=== PATIENT | female | born 1985 | race Caucasian/White ===

== ENCOUNTER 2022-09-01 08:43 | Emergency (ER) | payer MEDICAID ==
[~2022-09-01] VITALS: Ht 170.2 cm; Wt 63.6 kg
[2022-09-01] MEDS ORDERED: ondansetron/PF 4mg/2ml inj IV ONE ×2 (09:10→10:00)
[2022-09-01] MEDS ORDERED: ketorolac trometh. 30mg/ml inj. IV ONE (09:10)
[2022-09-01 09:24] LABS: CLARITY,URINE SLIGHTLY CLOUDY (Clear); COLOR,URINE YELLOW (Yellow); GLUCOSE, URINE NEGATIVE (Neg); KETONES,URINE NEGATIVE (Neg); LEUKOCYTE ESTERASE ,URINE NEGATIVE (Neg); OCCULT BLOOD,URINE NEGATIVE (Neg); PROTEIN,URINE NEGATIVE (Neg); UROBILINOGEN,URINE 0.2 E.U/dL (0.2-1.0)
[2022-09-01 09:25] LABS: URINE HCG NEGATIVE (NEG)
[2022-09-01 09:26] LABS: UA COLLECTION TYPE CLN CATCH MIDSTREAM
[2022-09-01 09:29] LABS: MUCUS STRANDS MODERATE /LPF (Neg); NITRITES, URINE NEGATIVE (Neg); SQUAMOUS EPITHELIAL CELL,UR MANY /LPF (FEW)
[2022-09-01 09:30] LABS: BACTERIA,URINE FEW /HPF (Neg); RBC,URINE 0-2 /HPF (0-2); WBC,URINE 0-4 /HPF (0-4)
[2022-09-01 09:34] LABS: BASOPHILS % (AUTO) 0.7 % (0-1); EOSINOPHILS % (AUTO) 0.1 % (0-6); HEMATOCRIT 39.9 % (35.0-45.0); HEMOGLOBIN 13.3 g/dl (12.0-16.0); LYMPHOCYTES # (AUTO) 0.8 X10'3 (1.1-4.8); LYMPHOCYTES % (AUTO) 15.8 % (21-51); MEAN CORPUSCULAR HEMOGLOBIN 29.9 PG (27.0-31.0); MEAN CORPUSCULAR HGB CONC 33.5 g/dL (33.0-36.5); MEAN CORPUSCULAR VOLUME 89.2 FL (78-98); MONOCYTES # (AUTO) 0.6 X10'3 (0-0.9); NEUTROPHILS # (AUTO) 3.7 X10'3 (1.8-7.7); NEUTROPHILS % (AUTO) 71.4 % (42-75); PLATELET COUNT 206 X10'3 (140-440); RED BLOOD COUNT 4.47 X10'6 (4.20-5.60); RED CELL DISTRIBUTION WIDTH 13.7 % (11.5-14.5); WHITE BLOOD COUNT 5.2 X10'3 (4.5-11.0)
[2022-09-01 09:38] LABS: ALANINE AMINOTRANSFERASE 52 U/L (12-78); ALBUMIN 3.9 G/DL (3.4-5.0); ALKALINE PHOSPHATASE 84 IU/L (46-116); ANION GAP 7 (8-16); ASPARTATE AMINO TRANSFERASE 55 U/L (10-37); BILIRUBIN,TOTAL 0.4 MG/DL (0.1-1.0); BLOOD UREA NITROGEN 11 MG/DL (7-18); BUN/CREATININE RATIO 15.3 (6.6-38.0); CALCIUM 9.1 MG/DL (8.5-10.1); CHLORIDE 100 MMOL/L (99-107); CREATININE 0.72 MG/DL (0.40-0.90); GLUCOSE 107 MG/DL (70-104); SODIUM 136 MMOL/L (135-145); TOTAL CARBON DIOXIDE 29.2 MMOL/L (24-32); TOTAL PROTEIN 7.9 G/DL (6.4-8.2); eGFR > 90 ML/MIN
[2022-09-01] MEDS: normal saline 1000ML IV soln IVB ONE ×2 (09:40→09:44)
[2022-09-01] MEDS: morphine 4 MG/ML inj SYRINge IV PRN ×2 (10:24→12:00)
[2022-09-01] MEDS ORDERED: LORazepam 2 mg/ml vial IV ONE (11:05)
[2022-09-01] MEDS ORDERED: haloperidol lactate 5mg/ml inj IM ONE ×2 (11:30→12:35)
[2022-09-01] MEDS ORDERED: TRAM50TA2 PO (11:55)
[2022-09-01] MEDS ORDERED: ORPH100T2 PO (11:55)
[2022-09-01] MEDS ORDERED: NAPR-56 PO (11:55)
[2022-09-01] MEDS ORDERED: LIDOcaine Viscous 15ml cup MM ONE (12:20)
[2022-09-01] MEDS ORDERED: mag hydrox/Alum hydrox/simeth 30ml oral suspension PO ONE (12:20)
[2022-09-01] MEDS ORDERED: sucralfate 1 gm tablet PO ONE (12:20)
[2022-09-01 13:17] VITALS: BP 107/67
== END 2022-09-01 13:23 | disposition home or self-care (01) ==
LOC: ER 08:44
DX: R10.31 Right lower quadrant pain (principal); M54.89 Other dorsalgia; Z79.899 Other long term (current) drug therapy
CPT/HCPCS: 36415; 74176; 80053; 81001; 81025; 85025; 96361; 96372; 96374; 96375; 96376; 99284; J1630; J1885; J2060; J2270; J2405; J7030

== ENCOUNTER 2022-09-02 01:13 | Emergency (ER) | payer MEDICAID ==
[~2022-09-02] VITALS: Ht 170.2 cm; Wt 63.6 kg
[~2022-09-02 01:13] MED LIST: NAPR-56 PO; ORPH100T2 PO; TRAM50TA2 PO
[2022-09-02] MEDS ORDERED: ketorolac trometh. 30mg/ml inj. IM ONE (02:10)
[2022-09-02 02:28] VITALS: BP 100/64
== END 2022-09-02 02:42 | disposition home or self-care (01) ==
LOC: ER 01:13
DX: M54.50 Low back pain, unspecified (principal); Z79.899 Other long term (current) drug therapy
CPT/HCPCS: 96372; 99283; J1885